=== PATIENT | male | born 1980 | race Caucasian/White ===

== ENCOUNTER 2021-07-01 13:51 | Emergency (ER) | payer OTHER ==
[~2021-07-01] VITALS: Ht 182.9 cm; Wt 93.0 kg
[2021-07-01 16:10] VITALS: BP 124/79
[2021-07-01] MEDS ORDERED: KETOROLAC 30MG VIAL (30MG/ML) IV ONE (16:30)
[2021-07-01] MEDS ORDERED: HYDROCODONE/ACETAMINOPHEN 5/325 MG TAB PO ONE (16:30)
[2021-07-01] MEDS ORDERED: ORPHENADRINE CITRATE 30 MG/ML ML IV ONE (16:30)
[2021-07-01] MEDS ORDERED: LIDOP TP (17:23)
[2021-07-01] MEDS ORDERED: ORPH-43 PO (17:23)
[2021-07-01] MEDS ORDERED: MELO7.5T12 PO (17:23)
== END 2021-07-01 18:01 | disposition home or self-care (01) ==
LOC: EDH 13:51
DX: M62.838 Other muscle spasm (principal); G89.29 Other chronic pain; M54.50 Low back pain, unspecified; Z79.1 Long term (current) use of non-steroidal anti-inflammatories (NSAID)
CPT/HCPCS: 96374; 96375; 99284; J1885; J2360

== ENCOUNTER 2022-05-21 01:20 | Emergency (ER) | payer BC, OTHER ==
[~2022-05-21] VITALS: Ht 182.9 cm; Wt 89.4 kg
[~2022-05-21 01:20] MED LIST: LIDOP TP; MELO7.5T12 PO; ORPH-43 PO
[2022-05-21 01:22] VITALS: BP 149/84
[2022-05-21] MEDS ORDERED: DEXAMETHASONE SOD PHOSPHATE 4 MG/ML 1ML VIAL IM ONE (02:30)
[2022-05-21] MEDS ORDERED: DEXAMETHASONE SOD PHOSPHATE 10MG/ML 1ML VIAL ONE (02:40)
== END 2022-05-21 02:47 | disposition home or self-care (01) ==
LOC: EDH 01:20
DX: J02.8 Acute pharyngitis due to other specified organisms (principal); B97.89 Other viral agents as the cause of diseases classified elsewhere; Z79.1 Long term (current) use of non-steroidal anti-inflammatories (NSAID); Z79.52 Long term (current) use of systemic steroids; Z20.822 Contact with and (suspected) exposure to COVID-19
CPT/HCPCS: 99284; 87635; 87880; 87804 ×2; 96372; C9803; J1100